=== PATIENT | male | born 1965 | race Caucasian/White ===

== ENCOUNTER 2017-12-06 12:02 | Day surgery (SDC) | payer OTHER ==
[2017-12-06] MEDS: IV RINGERS,LACTATED 1000ML 1,000 ML IV (12:59)
[2017-12-06 13:09] LABS: BASO # 0.1 x10^3/uL (0.0-0.2); BASO % 1 % (0-3); EOS # 0.1 x10^3/uL (0.0-0.7); EOS % 2 % (0-3); LYMPH # 0.3 x10^3/uL (1.0-4.8); LYMPH % 4 % (24-48); MEAN CORPUSCULAR HEMOGLOBIN 28 pg (25-35); MEAN CORPUSCULAR HGB CONC 34 g/dL (31-37); MEAN CORPUSCULAR VOLUME 80 fL (79-100); MONO # 0.8 x10^3/uL (0.0-1.1); MONO % 11 % (0-9); NEUT # 6.1 x10^3uL (1.8-7.7); NEUT % 83 % (31-73); PLATELET COUNT 175 x10^3/uL (140-400); RED BLOOD COUNT 3.99 x10^6/uL (4.30-5.70); WHITE BLOOD COUNT 7.3 x10^3/uL (4.0-11.0)
[2017-12-06 13:14] LABS: ADD MAN DIFF? YES
[2017-12-06 13:20] LABS: INR 1.6 (0.8-1.1); PARTIAL THROMBOPLASTIN TIME 36 SEC (24-38); PROTHROMBIN TIME PATIENT 18.1 SEC (11.7-14.0)
[2017-12-06] MEDS ORDERED: IV RINGERS,LACTATED 1000ML 1,000 ML IV (13:42)
[2017-12-06] MEDS ORDERED: ONDANSETRON PF 4 MG/2 ML VIAL. IV (13:45)
[2017-12-06] MEDS ORDERED: PROCHLORPERAZINE 10 MG/2 ML VIAL. IV (13:45)
[2017-12-06] MEDS ORDERED: fentaNYL PF VIAL 100 MCG/2 ML VIAL IV ×2 (13:45)
[2017-12-06] MEDS ORDERED: LIDOCAINE 1% PF 2 ML VIAL. ID (13:45)
[2017-12-06] MEDS ORDERED: MORPHINE SULFATE 2 MG/ML DISP.SYRIN. IV (13:45)
[2017-12-06 14:40] LABS: % BANDS 5 % (0-9); % EOS 2 % (0-5); % LYMPHS 3 % (24-48); % METAS 1 % (0-0); % MONOS 7 % (0-10); % SEGS 82 % (35-66); ANISOCYTOSIS SLIGHT; PLT ESTIMATE ADEQUATE (ADEQUATE); POLYCHROMASIA SLIGHT
[2017-12-06] MEDS ORDERED: CHLORHEXIDINE 0.12% 15 ML MOUTHWASH. SWSP (14:45)
[2017-12-06] MEDS ORDERED: ONDANSETRON PF 4 MG/2 ML VIAL. (15:06)
[2017-12-06] MEDS ORDERED: SUCCINYLCHOLINE 200 MG/10 ML VIAL. (15:06)
[2017-12-06] MEDS ORDERED: LIDOCAINE 2% PF Vial for OR 5 ML VIAL. (15:06)
[2017-12-06] MEDS ORDERED: DEXAMETHASONE SOD PHOS 20 MG/5 ML VIAL. (15:06)
[2017-12-06] MEDS ORDERED: fentaNYL PF VIAL 100 MCG/2 ML VIAL (15:06)
[2017-12-06] MEDS ORDERED: PROPOFOL 20 ML IV (15:06)
[2017-12-06] MEDS ORDERED: SEVOFLURANE 31 TO 60 MINUTES. IH (15:06)
[2017-12-06] MEDS: GELATIN SPONGE SIZE 100. (15:44)
[2017-12-06] MEDS: BUPIVACAINE-EPI 0.25%-1:200000 50 ML VIAL. (15:44)
[2017-12-06] MEDS ORDERED: PHENYLEPHRINE in 0.9% NACL PF 1 MG/10 ML SYRINGE. IV (16:02)
== END 2017-12-06 18:58 | disposition home or self-care (01) ==
LOC: SURG 12:02
DX: K02.9 Dental caries, unspecified (principal); K74.60 Unspecified cirrhosis of liver; K72.90 Hepatic failure, unspecified without coma; Z88.5 Allergy status to narcotic agent; K21.9 Gastro-esophageal reflux disease without esophagitis; Z79.899 Other long term (current) drug therapy; Z87.891 Personal history of nicotine dependence; Z98.890 Other specified postprocedural states
CPT/HCPCS: 36415; 85007; 85025; 85610; 85730; A7015; J0330; J0690; J1100; J2370; J2405; J2704; J3010; J7120